=== PATIENT | female | born 1970 | race Caucasian/White ===

== ENCOUNTER 2017-04-23 11:00 | Outpatient (CLI) | payer OTHER | END 2017-04-23 11:01 | disposition home or self-care (01) | LOC: DTY/OP 11:00 | PROVIDERS: ATTEND Surgery | DX: I10 Essential (primary) hypertension (principal); Z98.84 Bariatric surgery status | CPT/HCPCS: 97802 ==

== ENCOUNTER 2017-05-28 08:00 | Inpatient (IN) | payer OTHER ==
[2017-06-04 08:27] VITALS: BMI 37.9
[2017-06-07] MEDS ORDERED: CEFAZOLIN/Water 2 GM/20 ML SYRINGE ONE (06:09)
[2017-06-07] MEDS ORDERED: Heparin 5,000 UNITS/ML VIAL ONE (06:09)
[2017-06-07] MEDS ORDERED: Bupivacaine/Epinephrine 0.25% 30 ML VIAL ONE (06:52)
[2017-06-07] MEDS ORDERED: Fentanyl 250 MCG/5 ML VIAL ONE ×3 (06:54→09:18)
[2017-06-07] MEDS ORDERED: Midazolam HCl 2 mg/2 ml Vial ONE ×2 (06:54→06:56)
[2017-06-07] MEDS ORDERED: hydrALAZINE 20 MG/ML VIAL SLOW IVP PRN (08:53)
[2017-06-07] MEDS ORDERED: Promethazine HCl 25 MG/ML VIAL IM PRN ×3 (08:53→09:20)
[2017-06-07] MEDS ORDERED: Dextrose 50% Abboject 50 ML SYRINGE SLOW IVP PRN (08:53)
[2017-06-07] MEDS ORDERED: Hydrocodone-Acetamin 15 ML UDCUP PO PRN ×2 (08:53→09:30)
[2017-06-07] MEDS ORDERED: Ondansetron HCl/PF 4 MG/2 ML Vial IVP PRN ×3 (08:53→09:20)
[2017-06-07] MEDS ORDERED: diphenhydrAMINE 50 MG/ML VIAL IVP PRN ×2 (08:53→09:20)
[2017-06-07] MEDS ORDERED: Dextrose 5% in Water 1,000 ML IV PRN (08:53)
[2017-06-07] MEDS ORDERED: Promethazine HCl 25 MG/ML VIAL SLOW IVP PRN (09:07)
[2017-06-07] MEDS ORDERED: Morphine CADD 1 MG/ML CADD IVPB PRN (09:20)
[2017-06-07] MEDS ORDERED: Zolpidem Tartrate 5 MG TAB PO PRN (09:20)
[2017-06-07] MEDS ORDERED: Naloxone HCl 0.4 mg/ml Vial IV PRN (09:20)
[2017-06-07] MEDS ORDERED: Ketorolac Tromethamine 30 MG/ML VIAL IVP PRN (09:20)
[2017-06-07] MEDS ORDERED: diphenhydrAMINE 50 MG/ML VIAL IM PRN (09:20)
[2017-06-07] MEDS ORDERED: diphenhydrAMINE 25 MG CAP PO PRN (09:20)
[2017-06-07] MEDS ORDERED: Communication Order-Pharmacy FS SCH (09:30)
--- NOTE | 2017-06-07 11:18 | OP ---
DATE OF PROCEDURE: 06/07/2017 PREOPERATIVE DIAGNOSIS: Morbid obesity. SURGEON: Jose Hauser M.D. PROCEDURE PERFORMED: Laparoscopic hiatal hernia repair, laparoscopic sleeve gastrectomy, intraoperat kwasi esophagogastroscopy, INDICATIONS: The patient is a 46-year-old female, morbidly obese, who has attempted multiple weight loss programs without success. FINDINGS: A 38 Maltese bougie used. PROCEDURE IN DETAIL: After informed consent was obtained, the patient was taken to the operating lalo m, given general endotracheal anesthesia. She was placed in the supine position. The abdomen was pr epped and draped in usual fashion. Local anesthesia infiltrated subcutaneously and deep and a 12 mm incision was performed approximately 8 inches below the xiphoid slightly to the left. Veress needle inserted. Drop test performed. Pneumoperitoneum was created to a pressure volume of 2 liters of car bon dioxide. Utilizing a bladeless 12 , 0 degree laparoscope direct visual entry in the abdomin al cavity was performed. Pneumoperitoneum was created to a pressure of 15 [address] d in steep reverse Trendelenburg position. A Nathansen liver retractor inserted. Left lobe of liver retracted superiorly. The pylorus was identified and a 12 mm port placed on the right, beneath it a nd two 12s placed left subcostal. The omentum was taken off the greater curvature 5 cm from the pylo torri utilizing the LigaSure. Short gastrics divided with LigaSure, left crura defined with the LigaSu re. She had an obvious hiatal hernia, so the right crura was also dissected as well as a posterior e sophageal window. Once the esophagus was completely freed up the 38-Maltese bougie inserted. Then a posterior crural plication was performed utilizing a 0 Ethibond and Sew-Right and tie knot device. T hen the tip of the bougie was directed into the antrum and a linear 60 mm green load stapler used to divide the antrum to the bougie, gold load along the bougie, and a series of blues through the angle of His. Intraoperative endoscopy was performed. The video endoscope inserted under direct vision an d advanced into the sleeve. The staple line inspected. There was no bleeding. Staple line then nick madeleine by inflating the new stomach pressurized air and water, there was no air leak. Stomach decompres sed. Scope removed. The fascia was closed with 0 Vicryl suture and the GraNee needle. Trocars and retractors removed. Skin closed with interrupted 4-0 Rapide. Dermabond applied. The patient tolera madeleine the procedure well and was transferred to recovery in good condition. Sponge and needle count ve rified correct x2.
[2017-06-07] MEDS ORDERED: Propofol 200 MG/20 ML VIAL ONE (14:47)
[2017-06-07] MEDS ORDERED: Lidocaine 1% PF 5 ML VIAL ONE (14:47)
[2017-06-07] MEDS ORDERED: Glycopyrrolate 0.2 MG/ML 5 ML SYRINGE ONE (14:47)
[2017-06-07] MEDS ORDERED: Ketorolac Tromethamine 30 MG/ML VIAL ONE (14:47)
[2017-06-07] MEDS ORDERED: Ondansetron HCl/PF 4 MG/2 ML Vial ONE (14:47)
[2017-06-07] MEDS: CEFAZOLIN/Water 2 GM/20 ML SYRINGE SLOW IVP SCH ×2 (17:00→23:30)
[2017-06-07] MEDS: Pantoprazole 40 MG VIAL IVP SCH (17:01)
[2017-06-07] MEDS: D5 1/2 NS w/20 mEq KCL 1,000 ML IV SCH ×3 (17:01→23:29)
[2017-06-08 05:36] LABS: #Lymphocytes 1.3 thou/uL (1.20-3.40); #Monocytes 0.7 thou/uL (0.11-0.59); #Neutrophils 6.1 thou/uL (1.40-6.50); %Basophils 0.1 % (0.0-1.0); %Eosinophils 0.6 % (0.0-10.0); %Lymphocytes 15.9 % (21.0-51.0); %Monocytes 8.5 % (0.0-10.0); %Neutrophils 74.9 % (42.0-75.0); Hemoglobin 11.9 g/dL (12.0-16.0); Mean Corpuscular HGB CONC 32.1 g/dL (32.0-36.0); Mean Corpuscular Hemoglobin 29.4 pg (27.0-31.0); Mean Corpuscular Volume 91.7 fl (81.0-99.0); Mean Platelet Volume 7.7 fL (7.4-10.4); Platelet Count 323 thou/uL (130-400); RBC Distribution Width 13.2 % (11.5-14.5); Red Blood Cell (RBC) Count 4.03 mill/uL (4.20-5.40); White Blood Cell (WBC) Count 8.2 thou/uL (4.8-10.8)
[2017-06-08 06:04] LABS: Anion Gap 8 mmol/L (10-20); BUN (Urea Nitrogen) 6 mg/dL (7.0-18.7); Calc. Creatinine Clearance 162 mL/min (70-130); Calcium 8.8 mg/dL (7.8-10.44); Carbon Dioxide 26 mmol/L (22-29); Chloride 106 mmol/L (98-107); Estimated GFR-MDRD Greater than 90; Glucose 143 mg/dL (70-105); Potassium 4.2 mmol/L (3.5-5.1); Sodium 136 mmol/L (136-145)
[2017-06-08] MEDS ORDERED: Enoxaparin Sodium 40 MG/0.4 ML SYRINGE SC SCH (08:00)
--- NOTE | 2017-06-08 09:07 | RAD ---
UPPER GI SINGLE CONTRAST NO AIR: Date: 06/08/17 HISTORY: Evaluate for leak. Recent gastric sleeve. COMPARISON: None. FINDINGS: Patient brought to the fluoroscopy suite. All questions were answered. The patient was given 15 mL of Gastrografin. The patient tolerated this well. There is normal transit to the gastroesophageal junction and through the stomach. No evidence of leak . This was confirmed on multiple different views. IMPRESSION: No evidence of leak. Fluoro time: 0.3 minutes POS: [facility]
[2017-06-08] MEDS: D5 1/2 NS w/20 mEq KCL 1,000 ML IV SCH (09:16)
[2017-06-08] MEDS: Pantoprazole 40 MG VIAL IVP SCH (09:36)
[2017-06-08 11:57] VITALS: BP 146/83; TEMP 97.5
--- NOTE | 2017-06-08 12:21 | DIS ---
DISCHARGE DIAGNOSIS: Morbid obesity. PROCEDURES DURING ADMISSION: Laparoscopic sleeve gastrectomy, intraoperative esophagogastroscopy, po stoperative Gastrografin swallow. HOSPITAL COURSE: The patient was admitted, taken to the operating room where she underwent a sleeve gastrectomy. Postoperatively she has done well. She is tolerating liquids well. Her x-rays fine. She is discharged home on hydrocodone and Zofran. She will follow up with me in 2 weeks.
== END 2017-06-08 13:07 | disposition home or self-care (01) | DRG 621 ==
LOC: SURG A 06-07 05:47
PROVIDERS: ADMIT Surgery; ATTEND Surgery
PROC: 0DB64Z3 Excision of Stomach, Percutaneous Endoscopic Approach, Vertical (ICD-10-PCS; principal; 2017-06-07)
PROC: 0BQT4ZZ Repair Diaphragm, Percutaneous Endoscopic Approach (ICD-10-PCS; 2017-06-07)
PROC: 0DJ08ZZ Inspection of Upper Intestinal Tract, Via Natural or Artificial Opening Endoscopic (ICD-10-PCS; 2017-06-07)
DX: E66.01 Morbid (severe) obesity due to excess calories (principal); I10 Essential (primary) hypertension; K44.9 Diaphragmatic hernia without obstruction or gangrene; Z68.37 Body mass index [BMI] 37.0-37.9, adult; Z86.718 Personal history of other venous thrombosis and embolism; Z79.01 Long term (current) use of anticoagulants; Z79.899 Other long term (current) drug therapy
CPT/HCPCS: 36415; 74241; 80048; 85025; 88307; 88312; 94760; J1644; J1650; J1885; J2001; J2250; J2274; J2405; J2704; J3010

== ENCOUNTER 2017-06-04 07:58 | Outpatient (CLI) | payer SELFPAY, OTHER ==
[2017-06-04 10:15] LABS: Hemoglobin A1c 5.3 % (4.0-6.0)
== END 2017-06-04 07:59 | disposition home or self-care (01) ==
LOC: LABBT 07:58
PROVIDERS: ATTEND Surgery
DX: Z01.810 Encounter for preprocedural cardiovascular examination (principal); Z01.812 Encounter for preprocedural laboratory examination; E66.01 Morbid (severe) obesity due to excess calories
CPT/HCPCS: 83036

== ENCOUNTER 2017-06-20 19:52 | Day surgery (SDC) | payer BC ==
[2017-06-20 20:52] LABS: BHCG - Serum Negative (NEGATIVE); Pregs Control Background? CLEAR/WHITE (CLR/WHITE); Pregs Control Bar Appear? YES (CONTROL BAR)
[2017-06-20 21:00] LABS: Anisocytosis SLIGHT = 6-15 cells (100X) (0-5/hpf); Band 1 % (5-11); Elliptocytes SLIGHT = 2-5 cells (100X) (0-1/hpf); Hemoglobin 13.8 g/dL (12.0-16.0); Lymphocytes 19 % (21-51); MDiff Complete? YES; Mean Corpuscular Hemoglobin 28.3 pg (27.0-31.0); Mean Corpuscular Volume 85.9 fl (81.0-99.0); Mean Platelet Volume 8.9 fL (7.4-10.4); Monocytes 13 % (0-10); Neutrophil 63 % (42-75); PLT Morphology Comment Appears Adequate; Platelet Count 318 thou/uL (130-400); RBC Distribution Width 13.1 % (11.5-14.5); Reactive Lymphocytes 4 % (0-10); Red Blood Cell (RBC) Count 4.87 mill/uL (4.20-5.40); White Blood Cell (WBC) Count 7.8 thou/uL (4.8-10.8)
[2017-06-20 21:01] LABS: ALT (SGPT) 25 U/L (8-55); AST (SGOT) 25 U/L (5-34); Albumin 4.3 g/dL (3.5-5.0); Alkaline Phosphatase 92 U/L (40-150); Anion Gap 21 mmol/L (10-20); BUN (Urea Nitrogen) 8 mg/dL (7.0-18.7); Bilirubin, Total 0.5 mg/dL (0.2-1.2); Calc. Creatinine Clearance 0 mL/min (70-130); Calcium 9.6 mg/dL (7.8-10.44); Carbon Dioxide 18 mmol/L (22-29); Chloride 104 mmol/L (98-107); Estimated GFR-MDRD 82; Glucose 78 mg/dL (70-105); Potassium 4.1 mmol/L (3.5-5.1); Protein, Total 7.3 g/dL (6.0-8.3); Sodium 139 mmol/L (136-145)
== END 2017-06-20 23:13 | disposition home or self-care (01) ==
LOC: SCSER/OP 19:52
PROVIDERS: ATTEND Surgery
DX: E86.0 Dehydration (principal); I10 Essential (primary) hypertension; R05 Cough; Z79.01 Long term (current) use of anticoagulants; Z79.899 Other long term (current) drug therapy; Z98.890 Other specified postprocedural states
CPT/HCPCS: 36415; 80053; 84703; 85025

== ENCOUNTER 2017-06-25 09:34 | Emergency (ER) | payer BC ==
[2017-06-25] MEDS ORDERED: Ondansetron HCl/PF 4 MG/2 ML Vial ONE (10:26)
[2017-06-25 10:29] LABS: Bilirubin Moderate (Negative); Blood, Urine Large (Negative); Clarity Cloudy (Clear); Glucose, Urine (Dipstick) Negative (Negative); Leukocyte Negative (Negative); Nitrite Negative (Negative); Protein, Urine (Dipstick) 100 mg/dL (Neg-Trace); Urobilinogen 0.2 mg/dL (0.2-1.0)
[2017-06-25 10:30] LABS: Pregnancy Test - Urine (BHCG) Negative (Negative); Pregu Control Background? CLEAR/WHITE (CLR/WHITE); Pregu Control Bar Appear? YES (CONTROL BAR); Specific Gravity 1.027 (1.002-1.036); Specific Gravity, Urine 1.027 (1.002-1.036)
[2017-06-25 10:45] LABS: RBC/HPF GREATER THAN 50-TNTC HPF (0-3)
[2017-06-25 10:46] LABS: Bacteria/HPF 1+ HPF (None Seen); Squamous Epithelial 0-3 HPF (0-3); WBC/HPF 0-3 HPF (0-3)
[2017-06-25 10:48] LABS: #Lymphocytes 1.3 thou/uL (1.20-3.40); #Monocytes 0.7 thou/uL (0.11-0.59); #Neutrophils 5.7 thou/uL (1.40-6.50); %Basophils 0.6 % (0.0-1.0); %Eosinophils 0.5 % (0.0-10.0); %Lymphocytes 16.6 % (21.0-51.0); %Monocytes 8.7 % (0.0-10.0); %Neutrophils 73.6 % (42.0-75.0); Mean Corpuscular HGB CONC 33.2 g/dL (32.0-36.0); Mean Corpuscular Hemoglobin 29.3 pg (27.0-31.0); Mean Platelet Volume 9.3 fL (7.4-10.4); Platelet Count 243 thou/uL (130-400); RBC Distribution Width 13.4 % (11.5-14.5); White Blood Cell (WBC) Count 7.7 thou/uL (4.8-10.8)
[2017-06-25 11:00] LABS: ALT (SGPT) 38 U/L (8-55); AST (SGOT) 35 U/L (5-34); Albumin 3.6 g/dL (3.5-5.0); Alkaline Phosphatase 74 U/L (40-150); Anion Gap 17 mmol/L (10-20); BUN (Urea Nitrogen) 5 mg/dL (7.0-18.7); Bilirubin, Total 0.5 mg/dL (0.2-1.2); Calc. Creatinine Clearance 0 mL/min (70-130); Calcium 8.7 mg/dL (7.8-10.44); Carbon Dioxide 17 mmol/L (22-29); Chloride 108 mmol/L (98-107); Estimated GFR-MDRD 83; Globulin 2.6 g/dL (2.4-3.5); Glucose 85 mg/dL (70-105); Lipase 43 U/L (8-78); Potassium 3.9 mmol/L (3.5-5.1); Protein, Total 6.2 g/dL (6.0-8.3); Sodium 138 mmol/L (136-145)
== END 2017-06-25 12:14 | disposition home or self-care (01) ==
LOC: SCSER 09:34
DX: E86.0 Dehydration (principal); I10 Essential (primary) hypertension; Z79.01 Long term (current) use of anticoagulants
CPT/HCPCS: 36415; 80053; 81003; 81015; 81025; 83690; 85025; 96361; 96374; J2405

== ENCOUNTER 2017-06-27 12:24 | Inpatient (IN) | payer BC ==
[2017-06-27] MEDS ORDERED: Morphine 4 MG/ML VIAL SLOW IVP PRN ×2 (13:54)
[2017-06-27] MEDS ORDERED: Dextrose 5% in Water 1,000 ML IV PRN (13:54)
[2017-06-27] MEDS ORDERED: Promethazine HCl 25 MG/ML VIAL IM PRN (13:54)
[2017-06-27] MEDS ORDERED: hydrALAZINE 20 MG/ML VIAL SLOW IVP PRN (13:54)
[2017-06-27] MEDS ORDERED: Dextrose 50% Abboject 50 ML SYRINGE SLOW IVP PRN (13:54)
[2017-06-27] MEDS ORDERED: Ondansetron HCl/PF 4 MG/2 ML Vial IVP PRN (13:54)
[2017-06-27 14:14] VITALS: BMI 34.8
[2017-06-27] MEDS: Sodium Chloride 0.9% 1,000 ML IV SCH ×2 (14:20→15:38)
[2017-06-27 15:11] LABS: #Lymphocytes 1.7 thou/uL (1.20-3.40); #Monocytes 0.6 thou/uL (0.11-0.59); #Neutrophils 5.9 thou/uL (1.40-6.50); %Basophils 0.5 % (0.0-1.0); %Eosinophils 0.3 % (0.0-10.0); %Lymphocytes 20.3 % (21.0-51.0); %Monocytes 7.6 % (0.0-10.0); %Neutrophils 71.4 % (42.0-75.0); Hemoglobin 10.9 g/dL (12.0-16.0); Mean Corpuscular HGB CONC 32.5 g/dL (32.0-36.0); Mean Corpuscular Hemoglobin 29.3 pg (27.0-31.0); Mean Corpuscular Volume 90.2 fl (81.0-99.0); Mean Platelet Volume 8.2 fL (7.4-10.4); Platelet Count 253 thou/uL (130-400); RBC Distribution Width 13.3 % (11.5-14.5); Red Blood Cell (RBC) Count 3.74 mill/uL (4.20-5.40); White Blood Cell (WBC) Count 8.3 thou/uL (4.8-10.8)
[2017-06-27 15:32] LABS: ALT (SGPT) 29 U/L (8-55); AST (SGOT) 25 U/L (5-34); Albumin 3.5 g/dL (3.5-5.0); Alkaline Phosphatase 73 U/L (40-150); Anion Gap 17 mmol/L (10-20); BUN (Urea Nitrogen) 6 mg/dL (7.0-18.7); Bilirubin, Total 0.4 mg/dL (0.2-1.2); Calc. Creatinine Clearance 149 mL/min (70-130); Calcium 8.5 mg/dL (7.8-10.44); Carbon Dioxide 16 mmol/L (22-29); Chloride 109 mmol/L (98-107); Estimated GFR-MDRD Greater than 90; Globulin 2.1 g/dL (2.4-3.5); Glucose 71 mg/dL (70-105); Potassium 3.8 mmol/L (3.5-5.1); Protein, Total 5.6 g/dL (6.0-8.3); Sodium 138 mmol/L (136-145)
[2017-06-27] MEDS: Thiamine HCl 200 MG/2 ML VIAL SLOW IVP SCH (15:36)
[2017-06-27] MEDS: D5 1/2 NS w/20 mEq KCL 1,000 ML IV SCH (16:45)
--- NOTE | 2017-06-27 17:41 | HP ---
CHIEF COMPLAINT: Nausea, vomiting, dehydration. HISTORY OF PRESENT ILLNESS: This is a 46-year-old female who presents after multiple calls complaini ng of difficulty swallowing status post gastric sleeve. I am admitting her to the hospital for fluid resuscitation, labs, and further workup. She states that when she swallows, she has pain. She also states that she vomits up anything that she eats or drinks. She has already been to the hospital fo r IV fluids twice. She states that she is taking her vitamins daily. PAST MEDICAL HISTORY: Hypertension, history of DVT. PAST SURGICAL HISTORY: Gastric sleeve. MEDICATIONS: Medicines taken daily, metoprolol, Xarelto. ALLERGIES: Allergies to medicines, no known drug allergies. SOCIAL HISTORY: No smoking, alcohol, or other drugs. She is . REVIEW OF SYSTEMS: Ten-system review of systems is otherwise negative unless described above. PHYSICAL EXAMINATION: VITAL SIGNS: Blood pressure is 126/82, pulse 75, respirations 16. She is afebrile at 97.6. HEENT: Sclerae anicteric. Oropharynx clear. NECK: No lymphadenopathy. CHEST: Clear. HEART: Regular rate and rhythm. ABDOMEN: Soft, nontender, nondistended. Wounds healing well without evidence of infection. No abdo joby or inguinal hernias. EXTREMITIES: No ischemia or edema to extremities. LABORATORY DATA: White blood cell count is 8, hemoglobin 10.9, platelets 253. Sodium 138, potassium 3.8, creatinine 0.68, albumin 3.5. ASSESSMENT: Persistent nausea, dehydration, and dysphagia; status post gastric sleeve. PLAN: Admit to the hospital for IV fluid resuscitation. Check vitamin levels, supplement with sharlene ine. Further workup may include barium swallow or CT scan; however, she has no signs of sepsis, no s igns of a leak, and she is too far out for that at this point as well.
[2017-06-27] MEDS: Enoxaparin Sodium 40 MG/0.4 ML SYRINGE SC SCH (20:42)
[2017-06-27] MEDS ORDERED: Mag-Al 1200 mg/1200 mg/30 ML UDCUP PO PRN (21:44)
[2017-06-27] MEDS: Lorazepam 2 MG/ML VIAL SLOW IVP PRN (22:17)
[2017-06-28] MEDS: D5 1/2 NS w/20 mEq KCL 1,000 ML IV SCH ×3 (00:46→14:36)
[2017-06-28] MEDS ORDERED: Pantoprazole 40 MG VIAL IVP SCH (09:00)
--- NOTE | 2017-06-28 11:26 | CT ---
ABDOMEN CT WITH CONTRAST PELVIC CT WITH CONTRAST: HISTORY: Gastric sleeve 3 weeks ago. Painful swallow. Difficulty keeping anything down. Now in the lower esophageal area. COMPARISON: None. TECHNIQUE: Abdomen CT is performed with IV contrast. Enteric contrast was administered. Coronal reformatted im ages are submitted for interpretation. FINDINGS: ABDOMEN CT: Lung bases are clear. Heart size is normal. No significant pericardial fluid. Visualized aorta has an overall normal caliber. No periaortic fat stranding. Intra- and extrahepatic portal vein is pat ent. Gallbladder is unremarkable. Hypodensity in the left hepatic lobe, measuring 0.8 cm. Otherwise, hepatic parenchyma, spleen, pancr eas, and adrenal glands are unremarkable. Symmetric enhancement of the kidneys. No obstructive uropathy. No mesenteric mass, lymphadenopathy, free air, or free fluid. There is a small amount of stranding o f the left upper quadrant mesentery. There is minimal stranding of the mesentery adjacent to the gre ater curvature of the stomach as well as at the level of postsurgical change. No evidence of free ai r. No evidence of leak or extravasation. There are a few nonspecific gastrohepatic lymph nodes. At the level of bariatric surgical change, there is no evidence of obstruction. No evidence of bowel obstruction. There is contrast noted in a nondistended stomach. There is contrast in multiple norm al-caliber small bowel loops. Ileocecal junction is normal. Scattered fecal material in a nondisten ded, nondilated colon. The entire colon is not appreciated. Occasional diverticulum. No diverticul itis. Symmetric attenuation of the psoas muscles. No lytic or blastic lesions in the osseous structures. Incompletely evaluated soft tissue mass in the midline of the pelvis which may represent the uterus. Nonemergent pelvic ultrasound. IMPRESSION: Postsurgical changes compatible with previous bariatric surgery. No leak or extravasation. Nonemerg ent pelvic ultrasound. POS: [facility]
[2017-06-28] MEDS: Thiamine HCl 200 MG/2 ML VIAL SLOW IVP SCH (13:42)
--- NOTE | 2017-06-28 14:13 | CON ---
DATE OF CONSULTATION: 06/28/2017 HISTORY OF PRESENT ILLNESS: The patient is a 46-year-old female, who underwent a gastric s leeve approximately 3 weeks ago. She said approximately 1 week after surgery, she noted a gurgling i n her chest, which worsened over the next week. She eventually had a significant dysphagia and odyno phagia. She reports she does not have any pain when not eating or swallowing. Whenever she does dri nk any food or liquid, she will have a significant pain in the chest, she points to the mid chest, an d also the food or liquid will sometimes come up. She has lost weight from her gastric sleeve. She denies any hematemesis, any fever, chills, any problems prior to the gastric sleeve. PAST MEDICAL HISTORY: Includes history of deep venous thrombosis, on Xarelto; hypertension, which nguyen ve been stopped since the sleeve surgery. PAST SURGICAL HISTORY: Includes gastric sleeve. MEDICATIONS: Include Xarelto, which she took Wednesday, but did not take Wednesday. ALLERGIES: No known allergies. SOCIAL HISTORY: She does not smoke or drink. FAMILY HISTORY: Negative for GI or liver disease. REVIEW OF SYSTEMS: Constitutional: No fever or chills. Positive for weight loss. Eyes: No blurre d vision or double vision. ENT: No sore throat or earache. Cardiovascular: Positive for chest danny n. Negative for palpitations. Pulmonary: No shortness of breath, cough, or wheezing. Gastrointest inal: See above. Genitourinary: No hematuria or dysuria. Musculoskeletal: No joint pain or muscl e weakness. Skin: No rashes. Neurologic: No numbness or seizure activity. PHYSICAL EXAMINATION: GENERAL: Shows an overweight female in no acute distress. VITAL SIGNS: Temperature 98.0, pulse 73, respiratory rate 16, blood pressure 124/78. HEENT: Unremarkable. NECK: Supple. CHEST: Clear. CARDIOVASCULAR: Regular rate and rhythm without murmurs or gallops. ABDOMEN: Soft, nontender, without organomegaly or masses. Bowel sounds are present and normoactive. RECTAL: Deferred. EXTREMITIES: Normal. NEUROLOGIC: Nonfocal. LABORATORY DATA: Patient underwent an abdominal CT scan. This showed post-surgical changes compatib le with previous bariatric surgery. No leak or extravasation was noted. There was an incompletely e valuated soft tissue mass in the midline of the pelvis, which may represent the uterus. Chemistries significant for CO2 of 16, BUN 6, total protein 56. ASSESSMENT: 1. Odynophagia with dysphagia. 2. History of deep venous thrombosis, on Xarelto. RECOMMENDATIONS: 1. EGD - the patient ate today, so we would be unable to perform EGD today. She also took her Xarel to 2 days ago and was given Lovenox yesterday. 2. Hold Lovenox. 3. Hold Xarelto. 4. IV PPI.
[2017-06-28] MEDS ORDERED: ISOVUE-370 76%-LOCM 1 ML ONE (14:44)
[2017-06-28] MEDS: Enoxaparin Sodium 40 MG/0.4 ML SYRINGE SC SCH (19:03)
[2017-06-28] MEDS: Pantoprazole 40 MG VIAL IVP SCH (20:34)
[2017-06-28] MEDS: Lorazepam 2 MG/ML VIAL SLOW IVP PRN (22:31)
[2017-06-29] MEDS: D5 1/2 NS w/20 mEq KCL 1,000 ML IV SCH ×4 (02:35→22:38)
[2017-06-29] MEDS: Pantoprazole 40 MG VIAL IVP SCH ×2 (08:23→20:59)
[2017-06-29] MEDS ORDERED: PROPOFOL 200 MG/20 ML VIAL ONE (13:30)
[2017-06-29] MEDS ORDERED: Lidocaine 1% PF 5 ML VIAL ONE (13:30)
[2017-06-29] MEDS: Thiamine HCl 200 MG/2 ML VIAL SLOW IVP SCH (15:46)
--- NOTE | 2017-06-29 16:11 | OP ---
DATE OF PROCEDURE: 06/29/2017 PROCEDURE: Esophagogastroduodenoscopy (diagnostic). INDICATION FOR PROCEDURE: Dysphagia and odynophagia. DESCRIPTION OF PROCEDURE: After the risks and benefits of the procedure were explained to the patien t including risks of bleeding, infection, perforation and reaction to anesthesia and/or pain, informe d consent was obtained. The patient was then taken to the endoscopy suite where deep sedation was ad ministered via propofol and anesthesia support. The standard gastroscope was then introduced into th e mouth with intubation of the esophagus and stomach, but further progress could not be achieved with the gastroscope with inadequate visualization of the proximal small intestine. The patient tolerate d the procedure well with no immediate perioperative complications. FINDINGS: ESOPHAGUS: Normal appearing mucosa was seen in the proximal and mid esophagus. Five to six linear e rosions were seen in the distal esophagus at the GE junction extending proximally about 1 cm in lengt h each. There was no associated ulceration or active/recent bleeding. Both the diaphragmatic pinch and GE junction were well seen at the same location. STOMACH: Surgical change associated with gastric sleeve was observed during this evaluation. Mild t ortuosity of the mid stomach was encountered with gastroscope along with a J-shaped stomach that did not allow for further advancement into the proximal small intestine. Also mucosa seen within the sto mach. Normal appearing mucosa was seen in the cardia, fundus, gastric body remnant, antrum and pylor us. There was no evidence of ulcerations, erosions, mass, lesion/polyps, stenosis/stricture or activ e/recent bleeding. DUODENUM: Cursory evaluation of the duodenal bulb was performed with visualization through the pylor us, but inability to achieve intubation of the proximal small intestine despite multiple maneuvers an d pressure on the abdomen nor to facilitate passage of the scope. This was most likely due to the re cent surgical change in a J-shaped stomach that would not allow for intubation of the proximal small intestine. The mucosa visualized through the pylorus. The duodenal bulb appeared normal. IMPRESSION: 1. Surgical change consistent with a gastric sleeve seen during this examination. 2. LA grade B reflux mediated erosive esophagitis seen in the distal esophagus (most likely reason f or patient's dysphagia/odynophagia). 3. Incomplete evaluation of the upper gastrointestinal tract with inability to intubate the second p ortion of the duodenum due to surgical change. RECOMMENDATIONS: 1. Follow with primary inpatient team. 2. We would continue PPI 40 mg twice daily for erosive esophagitis, most likely as a result of the r ecent gastric sleeve surgery. 3. Place the patient on clear liquid bariatric diet and follow acid reflux precautions with this par ticular diet (for example, maintain upright posture when able, patient to maintain an upright posture for at least 2 hours after the ingestion of any meal either solid or liquid). 4. Can use antiemetics as needed for nausea/vomiting associated with increased acid reflux from surg ical change.
[2017-06-29] MEDS: Enoxaparin Sodium 40 MG/0.4 ML SYRINGE SC SCH (20:58)
[2017-06-29] MEDS: Lorazepam 2 MG/ML VIAL SLOW IVP PRN (22:36)
[2017-06-30] MEDS: D5 1/2 NS w/20 mEq KCL 1,000 ML IV SCH (05:48)
[2017-06-30 08:06] VITALS: BP 121/82; TEMP 97.5
[2017-06-30] MEDS: Pantoprazole 40 MG VIAL IVP SCH (09:09)
--- NOTE | 2017-06-30 11:35 | DIS ---
DISCHARGE DIAGNOSES: Esophagitis, dysphagia, volume depletion. PROCEDURES DURING ADMISSION: CT scan of abdomen and pelvis, EGD. HOSPITAL COURSE: The patient was admitted, given IV fluids, IV thiamine and multivitamins. CT scan was performed, did not show any abnormality, no leak, no fluid collections. She continued to have dy sphagia. GI was consulted. EGD was performed. They really did not see much. Other than some dista l esophagitis, she is on some PPIs and it seems to have helped. She is discharged home on Solutab or Prevacid Solutab twice a day. She will follow up with me in 2 weeks.
== END 2017-06-30 10:15 | disposition home or self-care (01) | DRG 392 ==
LOC: SURG B 13:17 → SURG A 13:42
PROVIDERS: ADMIT Surgery; ATTEND Surgery
PROC: 0DJ08ZZ Inspection of Upper Intestinal Tract, Via Natural or Artificial Opening Endoscopic (ICD-10-PCS; principal; 2017-06-29)
DX: K20.9 Esophagitis, unspecified (principal); R13.10 Dysphagia, unspecified; E86.9 Volume depletion, unspecified; R29.6 Repeated falls; Z91.81 History of falling; Z86.718 Personal history of other venous thrombosis and embolism; Z79.01 Long term (current) use of anticoagulants; Z98.84 Bariatric surgery status
CPT/HCPCS: 74160; 80053; 85025; C9113; J1650; J2001; J2060; J2704; J3411

== ENCOUNTER 2017-07-13 19:56 | Emergency (ER) | payer BC ==
[2017-07-13] MEDS ORDERED: Ondansetron HCl/PF 4 MG/2 ML Vial ONE (20:18)
[2017-07-13 20:43] LABS: #Basophils 0.1 thou/uL (0.0-0.2); #Eosinphils 0.1 thou/uL (0.0-0.7); #Lymphocytes 1.5 thou/uL (1.20-3.40); #Monocytes 0.5 thou/uL (0.11-0.59); #Neutrophils 2.6 thou/uL (1.40-6.50); %Basophils 1.1 % (0.0-1.0); %Eosinophils 1.5 % (0.0-10.0); %Lymphocytes 31.9 % (21.0-51.0); %Monocytes 10.5 % (0.0-10.0); Hemoglobin 12.1 g/dL (12.0-16.0); Mean Corpuscular HGB CONC 33.6 g/dL (32.0-36.0); Mean Corpuscular Hemoglobin 29.4 pg (27.0-31.0); Mean Corpuscular Volume 87.5 fl (81.0-99.0); Mean Platelet Volume 8.5 fL (7.4-10.4); Platelet Count 276 thou/uL (130-400); Red Blood Cell (RBC) Count 4.11 mill/uL (4.20-5.40); White Blood Cell (WBC) Count 4.8 thou/uL (4.8-10.8)
[2017-07-13] MEDS ORDERED: Thiamine HCl 200 MG/2 ML VIAL ONE (20:44)
[2017-07-13 20:58] LABS: Anion Gap 19 mmol/L (10-20); BUN (Urea Nitrogen) 4 mg/dL (7.0-18.7); Calc. Creatinine Clearance 0 mL/min (70-130); Calcium 9.2 mg/dL (7.8-10.44); Carbon Dioxide 20 mmol/L (22-29); Chloride 104 mmol/L (98-107); Estimated GFR-MDRD 77; Glucose 84 mg/dL (70-105); Potassium 3.3 mmol/L (3.5-5.1); Sodium 140 mmol/L (136-145)
== END 2017-07-13 21:40 | disposition home or self-care (01) ==
LOC: SCSER 19:56
DX: E86.0 Dehydration (principal); K21.9 Gastro-esophageal reflux disease without esophagitis; I10 Essential (primary) hypertension; Z86.718 Personal history of other venous thrombosis and embolism; Z79.899 Other long term (current) drug therapy
CPT/HCPCS: 80048; 85025; 96365; 96375; J2405; J3411

== ENCOUNTER 2017-07-22 16:24 | Outpatient (CLI) | payer BC | END 2017-07-22 16:25 | disposition home or self-care (01) | LOC: BICRAD 16:24 | PROVIDERS: ATTEND Internal Medicine | DX: Z30.431 Encounter for routine checking of intrauterine contraceptive device (principal) | CPT/HCPCS: 74018 ==

== ENCOUNTER 2017-08-18 09:59 | Emergency (ER) | payer BC ==
[2017-08-18 10:34] LABS: Hemoglobin 13.8 g/dL (12.0-16.0); Mean Corpuscular HGB CONC 32.4 g/dL (32.0-36.0); Mean Corpuscular Hemoglobin 28.8 pg (27.0-31.0); Mean Corpuscular Volume 88.9 fl (81.0-99.0); Mean Platelet Volume 8.3 fL (7.4-10.4); Platelet Count 315 thou/uL (130-400); RBC Distribution Width 13.8 % (11.5-14.5); Red Blood Cell (RBC) Count 4.79 mill/uL (4.20-5.40); White Blood Cell (WBC) Count 4.9 thou/uL (4.8-10.8)
[2017-08-18 10:43] LABS: ALT (SGPT) 23 U/L (8-55); AST (SGOT) 24 U/L (5-34); Alkaline Phosphatase 73 U/L (40-150); Anion Gap 19 mmol/L (10-20); BUN (Urea Nitrogen) 5 mg/dL (7.0-18.7); Bilirubin, Total 0.5 mg/dL (0.2-1.2); Calc. Creatinine Clearance 0 mL/min (70-130); Calcium 9.6 mg/dL (7.8-10.44); Carbon Dioxide 20 mmol/L (22-29); Chloride 104 mmol/L (98-107); Estimated GFR-MDRD 85; Glucose 87 mg/dL (70-105); Lipase 26 U/L (8-78); Potassium 3.1 mmol/L (3.5-5.1); Sodium 140 mmol/L (136-145)
[2017-08-18 10:54] LABS: #Basophils 0.1 thou/uL (0.0-0.2); #Eosinphils 0.1 thou/uL (0.0-0.7); #Lymphocytes 1.3 thou/uL (1.20-3.40); #Monocytes 0.6 thou/uL (0.11-0.59); #Neutrophils 2.9 thou/uL (1.40-6.50); %Basophils 1.3 % (0.0-1.0); %Eosinophils 1.6 % (0.0-10.0); %Lymphocytes 25.7 % (21.0-51.0); %Monocytes 11.3 % (0.0-10.0); %Neutrophils 60.1 % (42.0-75.0); Acanthocytes SLIGHT = 1-5 cells (100X) (None Seen); Lymphocytes 22 % (21-51); MDiff Complete? YES; Monocytes 7 % (0-10); Neutrophil 69 % (42-75); PLT Morphology Comment Appears Adequate; Reactive Lymphocytes 2 % (0-10)
[2017-08-18] MEDS ORDERED: Multivit, Adult Inj 10 ML VIAL ONE (11:12)
[2017-08-18] MEDS ORDERED: Thiamine HCl 200 MG/2 ML VIAL ONE (11:12)
== END 2017-08-18 12:42 | disposition home or self-care (01) ==
LOC: SCSER 09:59
DX: E86.0 Dehydration (principal); K21.9 Gastro-esophageal reflux disease without esophagitis; I10 Essential (primary) hypertension; Z79.899 Other long term (current) drug therapy
CPT/HCPCS: 80053; 83690; 85025; 96361; 96365; 96368; J3411

== ENCOUNTER 2017-09-06 15:46 | Day surgery (SDC) | payer BC ==
[2017-09-06] MEDS ORDERED: Multivit, Adult Inj 10 ML VIAL ONE (15:53)
[2017-09-06] MEDS ORDERED: Ondansetron HCl/PF 4 MG/2 ML Vial ONE (16:06)
== END 2017-09-06 17:00 | disposition home or self-care (01) ==
LOC: SCSER/OP 15:46
PROVIDERS: ATTEND Surgery
DX: R11.0 Nausea (principal)
CPT/HCPCS: J2405

== ENCOUNTER 2017-11-30 11:01 | Day surgery (SDC) | payer BC ==
[2017-11-30] MEDS ORDERED: Multivit, Adult Inj 10 ML VIAL ONE (12:03)
== END 2017-11-30 13:36 | disposition home or self-care (01) ==
LOC: SCSER/OP 11:01 → SCSER 11:01 → EDSTATUS 11:21 → SCSER/OP 13:36
PROVIDERS: ATTEND Surgery
DX: R11.2 Nausea with vomiting, unspecified (principal)
CPT/HCPCS: 96365

== ENCOUNTER 2018-07-06 10:26 | Inpatient (IN) | payer BC ==
[2018-07-06] MEDS ORDERED: Iopamidol 370 76% 50 ML VIAL FS ONE (10:35)
[2018-07-06] MEDS ORDERED: ISOVUE-370 76%-LOCM 1 ML ONE (10:35)
[2018-07-06 11:02] LABS: #Eosinphils 0.1 thou/uL (0.0-0.7); #Lymphocytes 1.2 thou/uL (1.20-3.40); #Monocytes 0.7 thou/uL (0.11-0.59); #Neutrophils 10.8 thou/uL (1.40-6.50); %Basophils 0.1 % (0.0-1.0); %Eosinophils 0.6 % (0.0-10.0); %Lymphocytes 9.3 % (21.0-51.0); %Monocytes 5.5 % (0.0-10.0); %Neutrophils 84.6 % (42.0-75.0); Hemoglobin 12.9 g/dL (12.0-16.0); Mean Corpuscular HGB CONC 32.4 g/dL (32.0-36.0); Mean Corpuscular Volume 92.7 fL (78.0-98.0); Mean Platelet Volume 7.3 fL (7.4-10.4); Platelet Count 298 thou/uL (130-400); RBC Distribution Width 12.1 % (11.5-14.5); Red Blood Cell (RBC) Count 4.29 mill/uL (4.20-5.40); White Blood Cell (WBC) Count 12.8 thou/uL (4.8-10.8)
[2018-07-06 11:25] LABS: ALT (SGPT) 12 U/L (8-55); AST (SGOT) 14 U/L (5-34); Albumin 3.8 g/dL (3.5-5.0); Alkaline Phosphatase 101 U/L (40-150); Anion Gap 9 mmol/L (10-20); BUN (Urea Nitrogen) 8 mg/dL (7.0-18.7); Bilirubin, Total 0.6 mg/dL (0.2-1.2); Calc. Creatinine Clearance 0 mL/min (70-130); Carbon Dioxide 29 mmol/L (22-29); Chloride 104 mmol/L (98-107); Estimated GFR-MDRD 72; Globulin 2.8 g/dL (2.4-3.5); Glucose 95 mg/dL (70-105); Lipase 30 U/L (8-78); Potassium 4.7 mmol/L (3.5-5.1); Protein, Total 6.6 g/dL (6.0-8.3); Sodium 137 mmol/L (136-145)
[2018-07-06] MEDS ORDERED: Ondansetron PF 4 MG/2 ML Vial ONE ×3 (11:46→16:01)
[2018-07-06] MEDS ORDERED: Morphine 2 MG/ML SYRINGE ONE (11:46)
[2018-07-06 11:56] LABS: Bilirubin Small (Negative); Blood, Urine Negative (Negative); Clarity CLOUDY (Clear); Glucose, Urine (Dipstick) Negative (Negative); Leukocyte Small (Negative); Nitrite Positive (Negative); Protein, Urine (Dipstick) 30 mg/dL (Neg-Trace); Specific Gravity, Urine 1.028 (1.002-1.036); pH, Urine 5.5 (5.0-9.0)
[2018-07-06 12:10] LABS: Pregnancy Test - Urine (BHCG) Negative (Negative); Pregu Control Background? CLEAR/WHITE (CLR/WHITE); Pregu Control Bar Appear? YES (CONTROL BAR); Specific Gravity 1.028 (1.002-1.036)
[2018-07-06] MEDS ORDERED: Fentanyl 100 MCG/2 ML VIAL ONE ×4 (12:11→17:38)
[2018-07-06 12:17] LABS: Bacteria/HPF 1+ HPF (None Seen); Hyaline Casts/LPF 0-3 HYALINE CAST LPF (0-3 Hyaline); Manual Microscopic Reviewed? No Path Casts Seen; RBC/HPF None Seen HPF (0-3); Renal Epithelial None Seen HPF (0-3); Transitional Epithelial NONE SEEN HPF (0-3)
[2018-07-06] MEDS ORDERED: diphenhydrAMINE 50 MG/ML VIAL ONE (12:43)
[2018-07-06] MEDS ORDERED: cefTRIAXone\\ROCEPHIN 1 GM VIAL ONE (13:31)
--- NOTE | 2018-07-06 14:09 | CT ---
CT abdomen and pelvis with IV and oral contrast HISTORY: Lower abdomen pain. FINDINGS: Small hiatal hernia and gastroesophageal reflux. Previous bariatric surgery of the stomach. A 0.8 cm small ill-defined low density nonspecific nodule within the posterior liver dome is stable c ompared to 06/28/2017. FINDINGS: There is circumferential wall thickening the lower right colon.. Appendix is dilated to 1.0 cm with enhancement of the wall and fluid throughout the lumen. Small amount of free fluid is present within the right lower quadrant and the cul-de-sac. Subtle stranding in the fat of the right lower quadrant around the inflamed bowel. 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 IMPRESSION: Obstructed and inflamed appendix. Acute appendicitis is the favored diagnosis. Possible s econdary inflammation of the adjacent right colon. Small amount of free fluid.
[2018-07-06] MEDS ORDERED: Bupivacaine/Epinephrine 0.25% 30 ML VIAL ONE (15:25)
--- NOTE | 2018-07-06 15:53 | HP ---
CHIEF COMPLAINT: Right lower quadrant abdominal pain. HISTORY OF PRESENT ILLNESS: This is a 47-year-old female, who says that she was having some burning with urination on Wednesday and then two days ago, started having abdominal cramps, nausea, and vomiting. The last night, she started having right lower quadrant abdominal pain in suprapubic area. No fever. PAST MEDICAL HISTORY: Otherwise healthy. PAST SURGICAL HISTORY: Sleeve gastrectomy a year ago. MEDICATIONS: She is on some antibiotics for presumed diverticulitis from her primary care physician. ALLERGIES: NO KNOWN DRUG ALLERGIES. SOCIAL HISTORY: . No tobacco or alcohol. FAMILY HISTORY: Noncontributory. PHYSICAL EXAMINATION: VITAL SIGNS: Temperature, she is afebrile. Pulse 101, blood pressure 108/69. GENERAL: The patient is awake, alert, in some discomfort. HEENT: No jaundice. LUNGS: Clear. HEART: Regular rate and rhythm. ABDOMEN: Tender, primarily on the right side with local peritoneal signs. EXTREMITIES: Unremarkable. LABORATORY DATA: White count 12.8, H and H are 12 and 39, platelet count 298. Electrolytes are fine. CT scan shows an inflamed appendix, but also some thickening of the wall of the right colon. ASSESSMENT: Probable acute appendicitis. PLAN: Diagnostic laparoscopy, laparoscopic appendectomy. CONSENT: I have discussed planned procedure as well as risk of bleeding, infection, injury to bowel, bladder, need to open, she understands and gives informed consent. Job ID: [id number]
[2018-07-06] MEDS ORDERED: PHENYLEPHRINE-NS 100 MCG/ML 10 ML SYRINGE ONE (16:01)
[2018-07-06] MEDS ORDERED: PROPOFOL 200 MG/20 ML VIAL ONE (16:01)
[2018-07-06] MEDS ORDERED: Rocuronium Bromide 10 MG/ML (10ML VIAL) ONE (16:01)
[2018-07-06] MEDS ORDERED: Ketorolac Tromethamine 30 MG/ML VIAL ONE (16:01)
[2018-07-06] MEDS ORDERED: Glycopyrrolate 0.2 MG/ML 5 ML SYRINGE ONE (16:01)
[2018-07-06] MEDS ORDERED: Lidocaine 1% PF 5 ML VIAL ONE (16:01)
[2018-07-06] MEDS ORDERED: Succinylcholine Chloride 20 MG/ML 10 ml SYRINGE FS ONE (16:01)
[2018-07-06] MEDS ORDERED: Ondansetron PF 4 MG/2 ML Vial IVP PRN (17:11)
[2018-07-06] MEDS ORDERED: Dextrose 50% Abboject 50 ML SYRINGE SLOW IVP PRN (17:11)
[2018-07-06] MEDS ORDERED: HYDROcodone/Acetaminophen 10/325 mg Tablet PO PRN (17:11)
[2018-07-06] MEDS ORDERED: Promethazine HCl 25 MG/ML VIAL IM PRN ×2 (17:11→17:17)
[2018-07-06] MEDS ORDERED: Morphine 4 MG/ML VIAL SLOW IVP PRN (17:11)
[2018-07-06] MEDS ORDERED: hydrALAZINE 20 MG/ML VIAL SLOW IVP PRN (17:11)
[2018-07-06] MEDS ORDERED: Dextrose 5% in Water 1,000 ML IV PRN (17:11)
[2018-07-06] MEDS ORDERED: Morphine 2 MG/ML SYRINGE SLOW IVP PRN (17:11)
[2018-07-06] MEDS ORDERED: Ondansetron HCl/PF 4 MG/2 ML Vial IVP PRN (17:17)
[2018-07-06] MEDS ORDERED: Promethazine HCl 25 MG/ML VIAL SLOW IVP PRN (17:17)
[2018-07-06] MEDS ORDERED: D5 1/2 NS w/20 mEq KCL 1,000 ML ONE (18:06)
[2018-07-06] MEDS: Ketorolac Tromethamine 30 MG/ML VIAL IVP SCH (18:25)
[2018-07-06] MEDS: Piperacillin/Tazobactam 3.375 GM in Sodium Chloride 0.9% 100 ML IVPB SCH (18:31)
[2018-07-06] MEDS: D5 1/2 NS w/20 mEq KCL 1,000 ML IV SCH (18:31)
[2018-07-06] MEDS: Famotidine/PF 20 mg/2ml Vial SLOW IVP SCH (21:11)
[2018-07-06] MEDS: Famotidine 20 MG TAB PO SCH (21:11)
[2018-07-06] MEDS: HYDROcodone/Acetaminophen 10/325 mg Tablet PO PRN (21:13)
[2018-07-06 23:46] VITALS: BMI 20.8
[2018-07-07] MEDS: Piperacillin/Tazobactam 3.375 GM in Sodium Chloride 0.9% 100 ML IVPB SCH ×5 (00:07→23:12)
[2018-07-07] MEDS: Ketorolac Tromethamine 30 MG/ML VIAL IVP SCH ×5 (00:08→23:13)
[2018-07-07] MEDS: D5 1/2 NS w/20 mEq KCL 1,000 ML IV SCH ×6 (04:45→23:12)
[2018-07-07 06:04] LABS: #Eosinphils 0.1 thou/uL (0.0-0.7); #Lymphocytes 1.6 thou/uL (1.20-3.40); #Monocytes 0.8 thou/uL (0.11-0.59); #Neutrophils 10.4 thou/uL (1.40-6.50); %Basophils 0.3 % (0.0-1.0); %Eosinophils 1.1 % (0.0-10.0); %Lymphocytes 12.1 % (21.0-51.0); %Neutrophils 80.5 % (42.0-75.0); Hemoglobin 10.2 g/dL (12.0-16.0); Mean Corpuscular HGB CONC 32.4 g/dL (32.0-36.0); Mean Corpuscular Hemoglobin 30.2 pg (27.0-31.0); Mean Corpuscular Volume 93.3 fL (78.0-98.0); Mean Platelet Volume 7.4 fL (7.4-10.4); Platelet Count 255 thou/uL (130-400); RBC Distribution Width 12.1 % (11.5-14.5); Red Blood Cell (RBC) Count 3.39 mill/uL (4.20-5.40); White Blood Cell (WBC) Count 12.9 thou/uL (4.8-10.8)
[2018-07-07 06:19] LABS: Anion Gap 9 mmol/L (10-20); BUN (Urea Nitrogen) 9 mg/dL (7.0-18.7); Calc. Creatinine Clearance 77 mL/min (70-130); Calcium 8.6 mg/dL (7.8-10.44); Carbon Dioxide 24 mmol/L (22-29); Chloride 108 mmol/L (98-107); Estimated GFR-MDRD 73; Glucose 89 mg/dL (70-105); Potassium 4.2 mmol/L (3.5-5.1); Sodium 137 mmol/L (136-145)
--- NOTE | 2018-07-07 07:57 | OP ---
DATE OF PROCEDURE: 07/06/2018 PREOPERATIVE DIAGNOSIS: Acute appendicitis. PROCEDURE PERFORMED: Laparoscopic appendectomy. INDICATIONS: A 47-year-old female who reports a 4-day history of abdominal pain, nausea, vomiting. CT scan consistent with appendicitis. Findings of ruptured appendicitis with pelvic purulent fluid. DESCRIPTION OF PROCEDURE: After informed consent was obtained the patient was taken the operating room, given general endotracheal anesthesia, placed in supine position. Abdomen was prepped and draped in the usual fashion. Local anesthesia infiltrated subcutaneously and deep subumbilical incision was performed. Subcu divided sharply. The fascia grasped and two stay sutures of 0 Vicryl placed in each side of midline. Midline incised. Digital palpation revealed no local adhesions. A 0-degree laparoscope was inserted under direct vision. A 5 mm port was placed on the right lateral abdomen. She had a cluster of small bowel stuck to her bladder. Gently this was pushed down and you could see the tip of the appendix stuck to the bladder as well. This all came down easily, but there was purulent fluid in the pelvis. The sputum trap was attached to the suction and purulent fluid removed from the pelvis for culture. A second 5 mm port was placed suprapubic. Then, the mesoappendix divided with LigaSure. The base of appendix was divided utilizing the linear 45 mm stapler. The appendix was placed in endosac, removed from the abdomen in the endosac. The abdomen thoroughly irrigated. Irrigation fluid removed. The pelvis was irrigated multiple times. A drain was placed and brought down into the pelvis along the right gutter and brought out through the suprapubic incision. Fascia closed with interrupted 0 Vicryl sutures. Skin closed with interrupted 4-0 Rapide. Dermabond applied. Sterile bandage applied. The patient tolerated the procedure well, transferred to Recovery in good condition. Sponge and needle count verified correct x2. Job ID: [id number]
[2018-07-07] MEDS: Famotidine 20 MG TAB PO SCH ×2 (08:49→20:25)
[2018-07-07] MEDS: Enoxaparin Sodium 40 MG/0.4 ML SYRINGE SC SCH (08:50)
[2018-07-07] MEDS: Famotidine/PF 20 mg/2ml Vial SLOW IVP SCH ×2 (08:58→20:22)
--- NOTE | 2018-07-07 09:24 | PRG ---
DATE OF SERVICE: 07/07/2018 SUBJECTIVE: The patient is feeling much better. She had tolerated a regular diet this morning. The pain is minimal. No nausea, vomiting, voiding well. OBJECTIVE: VITAL SIGNS: Her temperature is 97.7, pulse 70, blood pressure is only 87/56, but she did not feel lightheaded, O2 saturation 100%. ABDOMEN: Soft. Minimal tenderness. No distention. LABORATORY DATA: White count 12, H and H of 10 and 31, platelet count 355. Electrolytes are fine. Her culture is growing gram-positive cocci in clusters and she has had out about 45 mL from her drain. ASSESSMENT: Status post ruptured appendix. PLAN: Continue IV antibiotics for now. May be discharged in the morning. Job ID: [id number]
[2018-07-07] MEDS: HYDROcodone/Acetaminophen 10/325 mg Tablet PO PRN (15:51)
[2018-07-08] MEDS: Piperacillin/Tazobactam 3.375 GM in Sodium Chloride 0.9% 100 ML IVPB SCH (05:50)
[2018-07-08] MEDS: Ketorolac Tromethamine 30 MG/ML VIAL IVP SCH (05:51)
[2018-07-08] MEDS: Famotidine 20 MG TAB PO SCH (08:21)
[2018-07-08] MEDS: Enoxaparin Sodium 40 MG/0.4 ML SYRINGE SC SCH (08:21)
[2018-07-08] MEDS: Famotidine/PF 20 mg/2ml Vial SLOW IVP SCH (08:23)
[2018-07-08 08:29] VITALS: BP 107/74; TEMP 98.6
--- NOTE | 2018-07-08 09:39 | PQF ---
NIRAV RAMAN JOHN A JR MD [id number] SURG B- [id number] CLINICAL DOCUMENTATION IMPROVEMENT CLARIFICATION FORM: ICD-10 Updated PLEASE DO AN ADDENDUM TO THE PROGRESS NOTE WITH ANY DOCUMENTATION UPDATES OR ADDITIONS AND CARRY THROUGH TO DC SUMMARY. THANK YOU. DATE: 07/08 ATTN: DR. VERONICA WOLF Please exercise your independent, professional judgment in responding to the clarification form. Clinical indicators are provided on the bottom of this form for your review. Please check appropriate box(s): [ ] UTI [ ] Contaminated urine specimen without UTI [ ] Other diagnosis [ X] Unable to determine In addition, please specify: Present on Admission (POA): [ X ] Yes [ ] No [ ] Unable to determine For continuity of documentation, please document condition throughout progress notes and discharge summary. Thank You. CLINICAL INDICATORS - SIGNS / SYMPTOMS / LABS URINALYSIS: POS NITRITE, SMALL LEUKOCYTE ESTERASE, WBC 11-20, 1+ BACTERIA ER PHYSICIAN DOCUMENTATION 07/06: PT PRESENTS W/SEVERE SUPRAPUBIC ABDOMEN. REPORTS ASSOCIATED N/V, SHARP PAIN ON URINATION H&P 07/06: HX PRESENT ILLNESS: ...SHE WAS HAVING SOME BURNING WITH URINATION ON WEDNESDAY & THEN 2 DAYS AGO, STARTED HAVING ABDOMINAL CRAMPS, NAUSEA & VOMITING. OPERATIVE REPORT 07/06: LAPAROSCOPIC APPENDECTOMY. FINDINGS OF RUPTURED APPENDICITIS W/PELVIC PURULENT FLUID. ...SHE HAD A CLUSTER OF SMALL BOWEL STUCK TO HER BLADDER. GENTLY THIS WAS PUSHED DOWN & YOU COULD SEE THE TIP OF THE APPENDIX STUCK TO HER BLADDER. RISK FACTORS: RUPTURED APPENDIX W/ TIP STUCK TO BLADDER (OP REPORT 07/06) ABNORMAL URINALYSIS (07/06) TREATMENT: LAPAROSCOPIC APPENDECTOMY (07/06) IV ANTIBIOTICS (ROCEPHIN IN ED; ZOSYN 07/06 - PRESENT) THANK YOU! [employer] (This form is maintained as a part of the permanent medical record) 2014 [employer]. All Rights Reserved Conchis Gee RN, BSN [email or web address] Office: [phone] [facility]
--- NOTE | 2018-07-09 00:58 | DIS ---
DATE OF ADMISSION: 07/06/2018 DATE OF DISCHARGE: 07/08/2018 DISCHARGE DIAGNOSIS: Ruptured appendicitis with peritonitis. PROCEDURES DURING ADMISSION: Laparoscopic appendectomy with drainage of abscess. HOSPITAL COURSE: The patient was admitted, given IV antibiotics, taken to the operating room where she underwent a laparoscopic appendectomy. She was found to have peritonitis. She also had quite a bit of purulent fluid in the pelvis that grew out gram-positive cocci. She was treated with an appendectomy, peritoneal irrigation and drainage. She is doing well. She is afebrile. She is tolerating a regular diet. Bowels are functioning. She is discharged home on hydrocodone, Augmentin, and Flagyl as well as Zofran. She will follow up with me on Wednesday or Wednesday for drain removal. Job ID: [id number]
[2018-07-09 04:18] LABS: Chlamydia by PCR Not Detected (NotDetected); GC by PCR Not Detected (NotDetected)
== END 2018-07-08 10:58 | disposition home or self-care (01) | DRG 340 ==
LOC: ERS 10:26 → SDC 16:01 → SURG B 18:19 → SURG A 07-07 14:50 → SURG B 07-07 14:52
PROVIDERS: ADMIT Surgery; ATTEND Surgery
PROC: 0DTJ4ZZ Resection of Appendix, Percutaneous Endoscopic Approach (ICD-10-PCS; principal; 2018-07-06)
DX: K35.33 Acute appendicitis with perforation, localized peritonitis, and gangrene, with abscess (principal); I10 Essential (primary) hypertension; Z86.718 Personal history of other venous thrombosis and embolism; Z98.84 Bariatric surgery status; B96.89 Other specified bacterial agents as the cause of diseases classified elsewhere
CPT/HCPCS: 36415; 74177; 80048; 80053; 81003; 81015; 81025; 83605; 83690; 85025; 87070; 87077; 87186; 87205; 87491; 87591; 88304; 96361; 96374; 96375; 96376; J0696; J1200; J1650; J1885; J2001; J2270; J2405; J2543; J2704; J3010; J3490; Q9966; Q9967

== ENCOUNTER 2018-07-25 14:32 | Emergency (ER) | payer BC ==
[~2018-07-25 14:32] MED LIST: Iopamidol 370 76% 100 ML VIAL ONE
[2018-07-25 15:03] LABS: #Basophils 0.1 thou/uL (0.0-0.2); #Eosinphils 0.1 thou/uL (0.0-0.7); #Lymphocytes 2.2 thou/uL (1.20-3.40); #Monocytes 0.5 thou/uL (0.11-0.59); #Neutrophils 4.2 thou/uL (1.40-6.50); %Basophils 0.8 % (0.0-1.0); %Eosinophils 2.1 % (0.0-10.0); %Lymphocytes 31.4 % (21.0-51.0); %Neutrophils 58.7 % (42.0-75.0); Hemoglobin 11.3 g/dL (12.0-16.0); Mean Corpuscular HGB CONC 31.8 g/dL (32.0-36.0); Mean Corpuscular Hemoglobin 28.9 pg (27.0-31.0); Mean Corpuscular Volume 90.9 fL (78.0-98.0); Mean Platelet Volume 6.7 fL (7.4-10.4); Platelet Count 384 thou/uL (130-400); Red Blood Cell (RBC) Count 3.93 mill/uL (4.20-5.40); White Blood Cell (WBC) Count 7.1 thou/uL (4.8-10.8)
--- NOTE | 2018-07-25 15:15 | RAD ---
EXAM: Chest Two Views 07/25/2018 3:12 PM HISTORY: Chest pain with left arm swelling COMPARISON: Prior exam dated February 18, 2017 from the [facility]. FINDINGS: Heart: Normal in size and contour. Pulmonary vessels: Normal. Costophrenic angles: Clear. Lungs: No confluent pneumonia, overt edema, pleural effusion, or other acute process. Pneumothorax: None. Osseous structures:Intact. Additional findings: There are surgical clips within the left upper abdomen. IMPRESSION: No significant acute intrathoracic disease.
[2018-07-25 15:18] LABS: ALT (SGPT) 19 U/L (8-55); AST (SGOT) 20 U/L (5-34); Albumin 3.7 g/dL (3.5-5.0); Alkaline Phosphatase 84 U/L (40-150); Anion Gap 12 mmol/L (10-20); BUN (Urea Nitrogen) 14 mg/dL (7.0-18.7); Bilirubin, Total 0.2 mg/dL (0.2-1.2); CK (CPK) 36 U/L (29-168); Calc. Creatinine Clearance 0 mL/min (70-130); Calcium 9.4 mg/dL (7.8-10.44); Carbon Dioxide 26 mmol/L (22-29); Chloride 105 mmol/L (98-107); Estimated GFR-MDRD 89; Globulin 2.7 g/dL (2.4-3.5); Glucose 129 mg/dL (70-105); Lipase 42 U/L (8-78); Potassium 3.9 mmol/L (3.5-5.1); Protein, Total 6.4 g/dL (6.0-8.3); Sodium 139 mmol/L (136-145)
--- NOTE | 2018-07-25 16:05 | ULT ---
Venous duplex sonogram left upper extremity HISTORY: Left arm pain and edema. Prior thrombosis. FINDINGS: Good color and spectral Doppler flow within the left internal jugular and subclavian veins, axillary, brachial, and cephalic veins. At the level of the distal humerus, the basilic vein is filled with echogenic material and is noncomp ressible. IMPRESSION: Short segment thrombosis of the left basilic vein at the level of the distal humerus. No evidence of extension into the deep venous system.
--- NOTE | 2018-07-25 17:00 | CT ---
CT arteriogram chest with IV contrast and 3-D MIPS imaging HISTORY: Chest pain. FINDINGS: There is good contrast opacification pulmonary arteries and thoracic aorta with normal bran shayne of the great vessels at the aortic arch. No pleural fluid or pneumothorax. Bariatric surgical changes of the stomach with resultant dilatation of and fluid within the esophagus. Bone island parti ally visualized at the right L1 pedicle on the inferior most image. IMPRESSION: No CT evidence of pulmonary embolus. Fluid distention of the esophagus, apparently related to bariatric surgery.
== END 2018-07-25 17:08 | disposition home or self-care (01) ==
LOC: SCSER 14:32
DX: K21.9 Gastro-esophageal reflux disease without esophagitis (principal); I10 Essential (primary) hypertension; Z86.718 Personal history of other venous thrombosis and embolism
CPT/HCPCS: 71046; 71275; 80053; 82550; 83690; 84484; 85025; 85379; 93005; Q9967

== ENCOUNTER 2019-02-24 15:54 | Outpatient (CLI) | payer BC ==
--- NOTE | 2019-02-24 17:02 | MMO ---
Bilateral MAMMO Bilat Screen [facility]. CLINICAL HISTORY: Patient is 48 years old and is seen for screening. The patient has the following family history of breast cancer: mother, after 60 and maternal grandmother, after 60. The patient has no personal history of cancer. VIEWS: The views performed were: bilateral craniocaudal with tomosynthesis and bilateral mediolateral oblique with tomosynthesis. FILMS COMPARED: The present examination has been compared to prior imaging studies performed at and 04/10/2016. This study has been interpreted with the assistance of computer-aided detection. MAMMOGRAM FINDINGS: There are no suspicious masses, suspicious calcifications, or new areas of architectural distortion. IMPRESSION: THERE IS NO MAMMOGRAPHIC EVIDENCE OF MALIGNANCY. A ROUTINE FOLLOW-UP MAMMOGRAM IN 1 YEAR IS RECOMMENDED. THE RESULTS OF THIS EXAM WERE SENT TO THE PATIENT. ACR BI-RADS Category 1 - Negative MAMMOGRAPHY NOTE: 1. A negative mammogram report should not delay a biopsy if a dominant of clinically suspicious mass is present. 2. Approximately 10% to 15% of breast cancers are not detected by mammography. 3. Adenosis and dense breasts may obscure an underlying neoplasm. Reported by: ASHWINI JULIAN MD Electonically Signed: [id number]
== END 2019-02-24 15:55 | disposition home or self-care (01) ==
LOC: BICMAMMO 15:54
PROVIDERS: ATTEND Internal Medicine
DX: Z12.31 Encounter for screening mammogram for malignant neoplasm of breast (principal); Z80.3 Family history of malignant neoplasm of breast
CPT/HCPCS: 77063; 77067

== ENCOUNTER 2023-12-07 12:49 | Observation (INO) | payer OTHER ==
[2023-12-07] MEDS ORDERED: PROPOFOL 20 ML ONE (13:09)
[2023-12-07] MEDS ORDERED: Sodium Chloride 0.9% 100 ML ONE (13:52)
[2023-12-07] MEDS ORDERED: cefOXitin 2 GM VIAL ONE (13:52)
[2023-12-07] MEDS ORDERED: fentaNYL PF 100 MCG/2 ML SYRINGE ONE (14:07)
[2023-12-07] MEDS ORDERED: MINERAL OIL/WHITE PETROLATUM 3.5 GM TUBE ONE (14:09)
[2023-12-07] MEDS ORDERED: Lidocaine 1% PF 5 ML VIAL ONE (14:10)
[2023-12-07] MEDS ORDERED: Rocuronium Bromide 10 MG/ML (10ML VIAL) ONE (14:10)
[2023-12-07] MEDS ORDERED: Ondansetron PF 4 MG/2 ML Vial ONE (14:18)
[2023-12-07] MEDS ORDERED: Dexamethasone 20 MG/5 ML VIAL ONE (14:18)
[2023-12-07] MEDS ORDERED: EPINEPHrine 1 MG/ML VIAL ONE (14:27)
[2023-12-07] MEDS ORDERED: Bupivacaine 0.25% HCL 30 ML VIAL ONE ×2 (14:27→14:28)
[2023-12-07] MEDS ORDERED: ePHEDrine Sulfate 50 MG/10 ML VIAL ONE (14:32)
[2023-12-07] MEDS ORDERED: Dexmedetomidine 200 MCG/2 ML VIAL ONE (14:40)
[2023-12-07] MEDS ORDERED: SUGAMMADEX SODIUM 200 MG/2 ML VIAL ONE (15:15)
[2023-12-07] MEDS ORDERED: hydrALAZINE 20 MG/ML VIAL SLOW IVP PRN (15:37)
[2023-12-07] MEDS ORDERED: Dextrose 5% in Water 1,000 ML IV PRN (15:37)
[2023-12-07] MEDS ORDERED: Ondansetron PF 4 MG/2 ML Vial IVP PRN (15:37)
[2023-12-07] MEDS ORDERED: Ipratropium/Albuterol 3 ML NEB NEB PRN (15:37)
[2023-12-07] MEDS ORDERED: Acetaminophen 325 MG TAB PO PRN (15:37)
[2023-12-07] MEDS ORDERED: Dextrose 50% Abboject 50 ML SYRINGE SLOW IVP PRN (15:37)
[2023-12-07] MEDS ORDERED: traMADol HCl 50 MG TAB PO PRN (15:37)
[2023-12-07] MEDS ORDERED: HYDROcodone/Acetaminophen 7.5/325 mg Tablet PO PRN (15:37)
[2023-12-07] MEDS ORDERED: Glucagon 1 MG/ML KIT IM PRN (15:37)
[2023-12-07] MEDS ORDERED: Morphine 4 MG/ML VIAL SLOW IVP PRN (15:37)
[2023-12-07] MEDS ORDERED: Promethazine HCl 25 MG/ML VIAL IM PRN (15:37)
[2023-12-07] MEDS ORDERED: D5 1/2 NS w/20 mEq KCL 1,000 ML ONE (17:23)
[2023-12-07] MEDS: D5 1/2 NS w/20 mEq KCL 1,000 ML IV SCH (17:33)
[2023-12-07] MEDS: traMADol HCl 50 MG TAB PO PRN (18:46)
[2023-12-08 06:23] LABS: #Basophils Less than 0.03 10x3/uL (0.0-0.2); #Eosinphils Less than 0.03 10x3/uL (0.0-0.7); %Eosinophils 0.1 % (0.0-10.0); %Lymphocytes 11.8 % (21.0-51.0); %Neutrophils 77.8 % (42.0-75.0); Hematocrit 33.8 % (36.0-47.0); Hemoglobin 10.4 g/dL (12.0-16.0); Mean Corpuscular HGB CONC 30.8 g/dL (32.0-36.0); Mean Corpuscular Hemoglobin 27.9 pg (27.0-31.0); Mean Corpuscular Volume 90.6 fL (78.0-98.0); Mean Platelet Volume 9.8 fL (7.4-10.4); Platelet Count 291 10x3/uL (130-400); RBC Distribution Width 15.5 % (11.5-14.5); Red Blood Cell (RBC) Count 3.73 mill/uL (4.20-5.40)
[2023-12-08 06:34] VITALS: TEMP 98.1
[2023-12-08 06:37] LABS: Anion Gap 14 mmol/L (10-20); BUN (Urea Nitrogen) 5 mg/dL (9.8-20.1); Calc. Creatinine Clearance 0 mL/min (70-130); Calcium 9.1 mg/dL (7.8-10.44); Carbon Dioxide 24 mmol/L (22-29); Chloride 107 mmol/L (98-107); Estimated GFR 104; Glucose 131 mg/dL (70-105); Potassium 4.9 mmol/L (3.5-5.1); Sodium 140 mmol/L (136-145)
[2023-12-08] MEDS: Pantoprazole DR 40 MG TAB PO SCH (09:03)
[2023-12-08 10:29] VITALS: BMI 24.9
[2023-12-08 11:47] VITALS: BP 120/76
== END 2023-12-08 13:40 | disposition home or self-care (01) ==
LOC: SDC 12:49 → SURG B 18:35
PROVIDERS: ADMIT Surgery; ATTEND Surgery
PROC: 0DQV4ZZ Repair Mesentery, Percutaneous Endoscopic Approach (ICD-10-PCS; principal; 2023-12-07)
DX: K46.9 Unspecified abdominal hernia without obstruction or gangrene (principal); K56.609 Unspecified intestinal obstruction, unspecified as to partial versus complete obstruction; K21.9 Gastro-esophageal reflux disease without esophagitis; K56.2 Volvulus; E66.01 Morbid (severe) obesity due to excess calories; Z79.899 Other long term (current) drug therapy; Z98.84 Bariatric surgery status; Z90.49 Acquired absence of other specified parts of digestive tract
CPT/HCPCS: 36415; 80048; 85025; A4314; J0171; J0665; J0694; J1100; J2405; J2704; J3480